=== PATIENT | male | born 1960 | race Two or more races ===

== ENCOUNTER 2021-01-15 06:40 | Day surgery (SDC) | payer OTHER, MEDICAID ==
[~2021-01-15] VITALS: Ht 180.3 cm; Wt 106.1 kg
[2021-01-15] VITALS (7 sets, daily range): BP systolic 169–207; BP diastolic 91–111
[~2021-01-15 06:40] MED LIST: AMLO-496 PO; CLON0.2T PO; CLOP75TA28 PO; FURO20TA3 PO; HYDR-4298 PO; INSU100I43 SC; INSU1INJ19 SC; METO25TA36 PO; POTA-220 PO; PRAV20TA3 PO
[2021-01-15] MEDS ORDERED: HEPARIN SODIUM (PORCINE) 5000 UNITS/ML 1ML VIAL ONE (07:37)
[2021-01-15] MEDS ORDERED: ANGIOMAX 250 MG VIAL IV ONE (07:37)
[2021-01-15] MEDS ORDERED: VERAPAMIL 2.5MG/ML INJ 2ML VIAL IV ONE (07:38)
[2021-01-15] MEDS ORDERED: fentaNYL CITRATE 100 MCG/2 ML VL ONE (07:38)
[2021-01-15] MEDS ORDERED: MIDAZOLAM HCL 2MG/2ML 2ml VIAL (1mg/ml) ONE (07:38)
[2021-01-15] MEDS ORDERED: SODIUM CHL 0.9% 50 ML ONE (07:38)
[2021-01-15] MEDS ORDERED: LIDOCAINE 2%HCL (LOCAL ANESTH.) INJ 20ML MDV ONE (07:43)
[2021-01-15] MEDS ORDERED: IOHEXOL 350 MG/ML 100ML IJ ONE (07:43)
[2021-01-15] MEDS ORDERED: IODIXANOL 320MG/ML 100ML BTL IV ONE (08:03)
[2021-01-15] MEDS ORDERED: ASPirin 325 MG TAB ONE (08:22)
[2021-01-15] MEDS ORDERED: TICAGRELOR 90 MG TAB ONE (08:22)
[2021-01-15] MEDS ORDERED: hydrALAZINE HCL 20 MG/ML VL ONE (10:27)
[2021-01-15] MEDS ORDERED: hydrALAZINE HCL 20 MG/ML VL IV ONE (10:30)
== END 2021-01-15 11:20 | disposition home or self-care (01) ==
LOC: CATH 06:40
PROVIDERS: ATTEND Internal Medicine Cardiovascular Disease
DX: R94.39 Abnormal result of other cardiovascular function study (principal); I25.10 Atherosclerotic heart disease of native coronary artery without angina pectoris; I12.9 Hypertensive chronic kidney disease with stage 1 through stage 4 chronic kidney disease, or unspecified chronic kidney disease; E11.22 Type 2 diabetes mellitus with diabetic chronic kidney disease; N18.9 Chronic kidney disease, unspecified; F17.210 Nicotine dependence, cigarettes, uncomplicated; E78.5 Hyperlipidemia, unspecified; Z79.02 Long term (current) use of antithrombotics/antiplatelets; Z20.822 Contact with and (suspected) exposure to COVID-19
CPT/HCPCS: 93458; C1725; C1769; C1874; C1887; C1894; C9600; J0360; J0583; J1644; J2250; J3010; Q9967; U0003; 99152; 99153